=== PATIENT | female | born 1940 ===

== ENCOUNTER → 2018-05-28 | Outpatient (CLI) | payer OTHER ==
[~2018-05-28] MED LIST: CIPRO500 MG PO; HYZAAR 100-121 UDTAB; NORVASC5 MG; SIMVASTATIN20 MG; ULTRACET PO; ZANTAC300 MG PO
== END | disposition home or self-care (01) ==
LOC: NUCLEAR 05-21 07:00
DX: I25.6 Silent myocardial ischemia (principal); I25.10 Atherosclerotic heart disease of native coronary artery without angina pectoris; R94.31 Abnormal electrocardiogram [ECG] [EKG]
CPT/HCPCS: 78452; 93017; A9500; J0153